=== PATIENT | male | born 1985 | race Caucasian/White ===

== ENCOUNTER 2020-07-07 20:30 | Emergency (ER) | payer SELFPAY ==
[~2020-07-07] VITALS: Ht 167.6 cm; Wt 82.0 kg
--- NOTE | 2020-07-07 21:01 | NUR ---
Assessment completed utilizing [place] corporate quality engineer [id number]. A&o x4, answering questions appropriately. Speaking in clear, full sentences. 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 Pt states, "it feels like I was in a dream." Sx resolved upon arrival to ED. Pt appears pale, diaphoretic. Denies fever/chills. Denies chest pain/abd pain/SOB. Denies N/V/D. Denies significant medical hx. Placed on tele/continuous O2 monitoring. Bed low, side rails up, call bundy within reach Addendum: 07/07/20 at 2105 by SCOOTER Provider aware of resolved neuro sx
[2020-07-07] MEDS ORDERED: ESCITALOPRAM 10MG TABLET PO SCH (22:10)
[2020-07-07 22:23] VITALS: BP 107/62
--- NOTE | 2020-07-07 22:30 | NUR ---
Med request sent to pharmacy
--- NOTE | 2020-07-07 22:58 | NUR ---
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 Verbalizes understanding r/t new script, f/u care, importance of establishing PCP close to home in [place], and returning to ED with worsening sx. Cab voucher provided. REMSA IV removed, catheter in tact upon removal. Ambulated out of ED independently, steady gait
--- NOTE | 2020-07-07 22:58 | NUR ---
Delay in medical cash poster d/t awaiting med from pharmacy
== END 2020-07-07 23:01 | disposition home or self-care (01) ==
LOC: ED 22:30
DX: F41.1 Generalized anxiety disorder (principal); R42 Dizziness and giddiness; H53.8 Other visual disturbances; R51.9 Headache, unspecified; R94.31 Abnormal electrocardiogram [ECG] [EKG]
CPT/HCPCS: 93005; 99283